=== PATIENT | female | born 1965 | race Caucasian/White ===

== ENCOUNTER 2016-08-04 20:57 | Emergency (ER) | payer MEDICARE, MEDICAID ==
[~2016-08-04] VITALS: Ht 167.6 cm; Wt 72.6 kg
[~2016-08-04 20:57] MED LIST: ACETAMINOPHEN-1 EAC1 ORAL; CYCLOBENZAPRINE10 MG ORAL; METFORMIN HCL500 M1 ORAL; PERCOCET 5-3251 EACH ORAL; RANITIDINE HCL150 MG ORAL
[2016-08-04 21:09] VITALS: BP 139/83
[2016-08-04] MEDS ORDERED: PERCOCET 10-321 EACH ORAL (21:13)
[2016-08-04] MEDS ORDERED: Norco 5mg/325mg tab ORAL ONE (21:45)
--- NOTE | 2016-08-04 21:46 | Emergency Room Report ---
History of Present Illness General Chief Complaint: Pain Source: Patient, EMS Present Illness HPI This is a 50-year-old female with history of chronic pain. She is on heavy doses of narcotic for it. She is fairly taking Percocet 10/325, #120, soma #90 , oxycodone 30 mg #90. Patient presents with chief complaint of back pain. No trauma. Onset today. Denies any fever chills denies any nausea vomiting. Nothing made it better nothing made it worse. No radiation. Pain is 10 out of 10. Patient said that she took her last pain medication today. No other complaint. Tell me that she has an appointment next week for refill. Allergies: Coded Allergies: No Known Allergies (Unverified , 12/07/13) Patient History Past Medical History: see triage record, old chart reviewed Past Surgical History: other Pertinent Family History: none Social History: Denies: smoking Now: No Immunizations: other Reviewed Nursing Documentation: PMH: Agreed, PSxH: Agreed Nursing Documentation-PMH Past Medical History: No Stated History Hx Cardiac Problems: No - CHRONIC BACK PAIN Hx Hypertension: Yes Hx Diabetes: Yes Hx Gastrointestinal Problems: Yes - ULCERS Review of Systems Eye: Denies: blurred vision, eye pain ENT: Denies: ear pain, nose congestion, throat swelling Respiratory: Denies: cough, shortness of breath Cardiovascular: Denies: chest pain, palpitations Gastrointestinal: Denies: abdominal pain, diarrhea, nausea, vomiting Musculoskeletal: Reports: back pain, Denies: joint pain Skin: Denies: rash Neurological: Denies: headache, numbness Endocrine: Denies: increased thirst, increased urine Hematologic/Lymphatic: Denies: easy bruising All Other Systems: negative except mentioned in HPI Physical Exam Vital Signs Date Time Temp Pulse Resp B/P Pulse Ox O2 Delivery O2 Flow Rate FiO2 08/04/16 20:55 97.9 85 18 135/105 98 Room Air vitals unremarkable Sp02 EP Interpretation: reviewed, normal General Appearance: well appearing, no apparent distress, alert Head: normocephalic, atraumatic Eyes: bilateral eye EOMI, bilateral eye PERRL ENT: hearing grossly normal, normal pharynx Neck: full range of motion, supple, no meningismus Respiratory: chest non-tender, lungs clear, normal breath sounds Cardiovascular #1: regular rate, rhythm, no murmur Gastrointestinal: normal bowel sounds, non tender, no mass, no organomegaly, no bruit, non-distended Musculoskeletal: back normal - No deformity. Diffuse tenderness with palpation. No anesthesia., gait/station normal, normal range of motion Neurologic: alert, oriented x3 Psychiatric: mood/affect normal Skin: warm/dry Medical Decision Making Diagnostic Impression: Primary Impression: Back pain Qualified Codes: M54.5 - Low back pain Additional Impression: Opioid dependence Qualified Codes: F11.20 - Opioid dependence, uncomplicated ER Course Patient presents with back pain. She is opioid dependent. She told me that she is out of her pain medication. When asked why she has no refills, she said she can get refill on these. She is to see her doctor. She has an appointment next week. On the [employer] system, she does receive her monthly narcotics on every second. She should have plenty. She then changed her story to that she is out of ibuprofen. She says she still has plenty of narcotics. This is different from what she told me before. She would not need to see her Dr. for refills on ibuprofen. I see no evidence of cauda equina syndrome, spinal or abscess or neoplastic process. There is no trauma. Last Vital Signs Date Time Temp Pulse Resp B/P Pulse Ox O2 Delivery O2 Flow Rate FiO2 08/04/16 21:09 98.0 77 14 139/83 100 Room Air Status: unchanged Disposition: HOME, SELF-CARE Condition: Stable Referrals: NON PHYSICIAN (PCP) Patient Instructions: Chronic Pain Additional Instructions: Followup with your Dr. in 2-3 days. Return if symptom worsen. JASON GRAMAJO M.D. Aug 04, 2016 21:46
[2016-08-04 22:05] LABS: APPEARANCE,URINE CLEAR; KETONES,URINE NEGATIVE (NEGATIVE); LEUKOCYTE ESTERASE ,URINE 1+ (NEGATIVE); NITRITE,URINE NEGATIVE (NEGATIVE); PH,URINE 6 (4.5-8.0); PROTEIN,URINE NEGATIVE (NEGATIVE); UROBILINOGEN,URINE NORMAL MG/DL (0.0-1.0)
[2016-08-04 22:21] LABS: BACTERIA,URINE FEW /HPF; RBC,URINE 0-2 /HPF (0 - 2); SQUAMOUS EPITHELIAL CELL,UR FEW /LPF (NONE/OCC)
[2016-08-04] MEDS ORDERED: NITROFURANTOIN100 M2 ORAL (22:29)
[2016-08-04 22:35] VITALS: BP 134/79
== END 2016-08-04 22:37 | disposition home or self-care (01) ==
LOC: EDBD 20:57 → EMR 21:29
DX: M54.5 Low back pain (principal); F11.20 Opioid dependence, uncomplicated; G89.29 Other chronic pain; I10 Essential (primary) hypertension; E11.9 Type 2 diabetes mellitus without complications; Z87.19 Personal history of other diseases of the digestive system
CPT/HCPCS: 80300; 81003; 99282

== ENCOUNTER 2016-08-06 13:45 | Emergency (ER) | payer MEDICARE, MEDICAID ==
[~2016-08-06] VITALS: Ht 175.3 cm; Wt 92.5 kg
[~2016-08-06 13:45] MED LIST changes: +NITROFURANTOIN100 M2 ORAL; +PERCOCET 10-321 EACH ORAL
[2016-08-06 13:52] VITALS: BP 140/90
[2016-08-06] MEDS ORDERED: Dicyclomine HCl 10mg/5ml oral soln ORAL ONE (14:15)
[2016-08-06] MEDS ORDERED: Lidocaine 2% Visc 15ml soln ORAL ONE (14:15)
[2016-08-06] MEDS ORDERED: Mylanta II UD 30ml ORAL ONE (14:15)
[2016-08-06 15:19] LABS: APPEARANCE,URINE SLIGHTLY CLOUDY; KETONES,URINE NEGATIVE (NEGATIVE); LEUKOCYTE ESTERASE ,URINE NEGATIVE (NEGATIVE); NITRITE,URINE NEGATIVE (NEGATIVE); PH,URINE 8 (4.5-8.0); PROTEIN,URINE NEGATIVE (NEGATIVE); UROBILINOGEN,URINE NORMAL MG/DL (0.0-1.0)
[2016-08-06 15:26] LABS: BASOPHILS % (AUTO) 0.7 % (0.0-2.0); LYMPHOCYTES % (AUTO) 19.7 % (20.0-45.0); MEAN CORPUSCULAR HEMOGLOBIN 32.6 PG (27.0-31.0); MEAN CORPUSCULAR HGB CONC 33.6 G/DL (32.0-36.0); MEAN CORPUSCULAR VOLUME 97 FL (80-99); MEAN PLATELET VOLUME 6.4 FL (6.5-10.1); MONOCYTES % (AUTO) 2.5 % (1.0-10.0); NEUTROPHILS % (AUTO) 77.1 % (45.0-75.0); PLATELET COUNT 253 K/UL (150-450); RED BLOOD COUNT 4.69 M/UL (4.20-5.40)
--- NOTE | 2016-08-06 15:26 | Emergency Room Report ---
History of Present Illness General Chief Complaint: Vomiting Source: Patient, EMS Present Illness HPI 50-year-old female brought in by ambulance complaining of nausea vomiting as last night. Associated symptoms include generalized abdominal pain without any provoking or relieving factors, body aches, low back pain, chills, and nausea with 6 episodes of non-bloody yellow vomiting. Patient was here a couple days ago and was diagnosed with UTI and given abx which patient has not taken. Patient takes Percocet for chronic hip pain with good compliance w/o AE and with good control and states the last time she took medication was at 11:30am w/ o improvement of sxs. Patient states she tried to take 1/2 an ativan for her nausea w/o relief. Patient states that her last by mouth intake was dinner yesterday which she had eaten white rice with chicken and beef from the [employer] food. Patient denies any diarrhea, shortness of breath, chest pain, rash, sore throat, nasal congestion, neck pain, headache, muscle weakness , back pain, flank pain or dysuria. Allergies: Coded Allergies: No Known Allergies (Unverified , 12/07/13) Patient History Past Medical History: see triage record, old chart reviewed Past Surgical History: unable to obtain Pertinent Family History: none Social History: Reports: drug use Now: No Reviewed Nursing Documentation: PMH: Agreed, PSxH: Agreed Nursing Documentation-PMH Hx Cardiac Problems: No - CHRONIC BACK PAIN Hx Hypertension: Yes Hx Diabetes: Yes Hx Gastrointestinal Problems: Yes - ULCERS Review of Systems All Other Systems: negative except mentioned in HPI Physical Exam Vital Signs Date Time Temp Pulse Resp B/P Pulse Ox O2 Delivery O2 Flow Rate FiO2 08/06/16 13:46 98.4 75 16 140/90 98 Room Air Sp02 EP Interpretation: reviewed, normal General Appearance: no apparent distress, alert, GCS 15, non-toxic Head: normocephalic, atraumatic Eyes: bilateral eye PERRL, bilateral eye normal inspection ENT: hearing grossly normal, normal pharynx, no angioedema, normal voice Neck: full range of motion, supple/symm/no masses Respiratory: chest non-tender, lungs clear, normal breath sounds, speaking full sentences Cardiovascular #1: regular rate, rhythm, no edema, no murmur, no rub Gastrointestinal: soft, no mass, no bruit, non-distended, no guarding, no hernia, no rebound, tenderness - generalized without rebound, Neg McBurney Rectal: deferred Genitourinary: no CVA tenderness Musculoskeletal: back normal, gait/station normal, normal range of motion, non- tender, calf tenderness Neurologic: alert, oriented x3, responsive, motor strength/tone normal, sensory intact, speech normal Psychiatric: judgement/insight normal, memory normal, mood/affect normal, no suicidal/homicidal ideation Skin: normal color, no rash, warm/dry, well hydrated Lymphatic: no adenopathy Medical Decision Making PA Attestation Dr. Stein is my supervising physician with whom patient management has been discussed with. Diagnostic Impression: Primary Impression: Abdominal pain Qualified Codes: R10.84 - Generalized abdominal pain Additional Impressions: Nausea & vomiting Qualified Codes: R11.2 - Nausea with vomiting, unspecified Chronic pain Qualified Codes: G89.4 - Chronic pain syndrome ER Course Pt. presents to the ED c/o nausea / vomiting x 1 day Ddx considered but are not limited to viral syndrome, appendicitis, diverticulitis, cholecystitis, pancreatitis, non-specific abd pain Vital signs: are WNL, pt. is afebrile H&PE are most consistent with non-specific abd pain ORDERS: CBC, CMP, Lipase, UA, Urine Tox, CT Abd Pelvis ED INTERVENTIONS: 1L Bolus NS, 4 Morphine, 4mg Zofran, 10mg Reglan, PO Challenge DISCHARGE: At this time pt. is stable for d/c to home. Patient is improved in condition and taking PO fluids. Labs and CT scan appeared to be non- contributory to patient's condition. Will provide printed patient care instructions, and any necessary prescriptions. Care plan and follow up instructions have been discussed with the patient prior to discharge. Laboratory Tests Test 08/06/16 14:51 White Blood Count 6.0 K/UL (4.8-10.8) Red Blood Count 4.69 M/UL (4.20-5.40) Hemoglobin 15.3 G/DL (12.0-16.0) Hematocrit 45.6 % (37.0-47.0) Mean Corpuscular Volume 97 FL (80-99) Mean Corpuscular Hemoglobin 32.6 PG (27.0-31.0) H Mean Corpuscular Hemoglobin Concent 33.6 G/DL (32.0-36.0) Red Cell Distribution Width 11.0 % (11.6-14.8) L Platelet Count 253 K/UL (150-450) Mean Platelet Volume 6.4 FL (6.5-10.1) L Neutrophils (%) (Auto) 77.1 % (45.0-75.0) H Lymphocytes (%) (Auto) 19.7 % (20.0-45.0) L Monocytes (%) (Auto) 2.5 % (1.0-10.0) Eosinophils (%) (Auto) 0.0 % (0.0-3.0) Basophils (%) (Auto) 0.7 % (0.0-2.0) Urine Color Yellow Urine Appearance Slightly cloudy Urine pH 8 (4.5-8.0) Urine Specific [place] 1.010 (1.005-1.035) Urine Protein Negative (NEGATIVE) Urine Glucose (UA) Negative (NEGATIVE) Urine Ketones Negative (NEGATIVE) Urine Occult Blood 1+ (NEGATIVE) H Urine Nitrite Negative (NEGATIVE) Urine Bilirubin Negative (NEGATIVE) Urine Urobilinogen Normal MG/DL (0.0-1.0) Urine Leukocyte Esterase Negative (NEGATIVE) Urine RBC 0-2 /HPF (0 - 2) Urine WBC 0-2 /HPF (0 - 2) Urine Squamous Epithelial Cells Few /LPF (NONE/OCC) Urine Amorphous Sediment Many /LPF (NONE) H Urine Bacteria Few /HPF (NONE) Urine HCG, Qualitative Negative Sodium Level 139 mEQ/L (135-145) Potassium Level 3.8 mEQ/L (3.4-4.9) Chloride Level 95 mEQ/L (98-107) L Carbon Dioxide Level 24 mEQ/L (20-30) Anion Gap 20 (5-15) H Blood Urea Nitrogen 7 mg/dL (7-23) Creatinine 0.7 mg/dL (0.5-0.9) Estimate Glomerular Filtration Rate > 60 mL/min (>60) Glucose Level 132 mg/dL (74-106) H Calcium Level 9.6 mg/dL (8.6-10.2) Total Bilirubin 0.6 mg/dL (0.0-1.2) Aspartate Amino Transferase (AST) 52 U/L (5-40) H Alanine Aminotransferase (ALT) 54 U/L (3-33) H Alkaline Phosphatase 77 U/L (35-104) Total Protein 8.7 g/dL (6.6-8.7) Albumin 4.6 g/dL (3.5-5.2) Globulin 4.1 g/dL Albumin/Globulin Ratio 1.1 (1.0-2.7) Lipase 65 U/L (< 60) H Urine Opiates Screen Negative (NEGATIVE) Urine Barbiturates Screen Negative (NEGATIVE) Phencyclidine (PCP) Screen Negative (NEGATIVE) Urine Amphetamines Screen Negative (NEGATIVE) Urine Benzodiazepines Screen Positive (NEGATIVE) H Urine Cocaine Screen Negative (NEGATIVE) Urine Marijuana (THC) Screen Negative (NEGATIVE) CT/MRI/US Diagnostic Results CT/MRI/US Diagnostic Results : Imaging Test Ordered: CT Scan abd / pelvis with contrast Impression Radiologist Review: Mild dilation vs underdistention of the transverse and descending colon. Last Vital Signs Date Time Temp Pulse Resp B/P Pulse Ox O2 Delivery O2 Flow Rate FiO2 08/06/16 13:52 98.4 16 140/90 98 Room Air 08/06/16 13:46 75 Status: improved Disposition: HOME, SELF-CARE Condition: Improved Scripts Metoclopramide Hcl* (REGLAN*) 10 Mg Tablet 10 MG ORAL THREE TIMES A DAY for 5 Days, #15 TAB Prov: CHA PAULA 08/06/16 Referrals: NOT CHOSEN IPA/MD,REFERRING (PCP) Patient Instructions: Abdominal Pain, Adult, Nausea and Vomiting, Adult Additional Instructions: Take medication as directed. Patient instructed to stay well hydrated and to use a liquid diet and then progress to soft bland diet as tolerated before reverting back to a regular diet. Patient Education was given to the patient. Patient advised if irreretractible pain, rectal bleeding, or no BM to go to ER immediately. CHA PAULA Aug 06, 2016 15:26
[2016-08-06 15:30] LABS: ALANINE AMINOTRANSFERASE 54 U/L (3-33); ALBUMIN/GLOBULIN RATIO 1.1 (1.0-2.7); ANION GAP 20 (5-15); ASPARTATE AMINO TRANSFERASE 52 U/L (5-40); CALCIUM 9.6 mg/dL (8.6-10.2); CARBON DIOXIDE 24 mEQ/L (20-30); CHLORIDE 95 mEQ/L (98-107); CREATININE 0.7 mg/dL (0.5-0.9); GLOMERULAR FILTRATION RATE > 60 mL/min (>60); HEMOLYSIS 4; LIPASE 65 U/L (< 60); POTASSIUM 3.8 mEQ/L (3.4-4.9); SODIUM 139 mEQ/L (135-145); TOTAL PROTEIN 8.7 g/dL (6.6-8.7)
[2016-08-06 15:31] LABS: RBC,URINE 0-2 /HPF (0 - 2); SQUAMOUS EPITHELIAL CELL,UR FEW /LPF (NONE/OCC); WBC,URINE 0-2 /HPF (0 - 2)
[2016-08-06 15:32] LABS: AMORPHOUS SEDIMENT,UR MANY /LPF; BACTERIA,URINE FEW /HPF
[2016-08-06] MEDS ORDERED: Metoclopramide 10mg/2ml Inj IVP ONE (15:45)
[2016-08-06] MEDS ORDERED: Morphine Sulfate 4mg/ml Inj IVP ONE (17:00)
[2016-08-06 18:01] VITALS: BP 153/65
[2016-08-06 18:16] VITALS: BP 153/65
[2016-08-06] MEDS ORDERED: REGLAN10 M1 ORAL (18:19)
--- NOTE | 2016-08-07 08:40 | Diagnostic Imaging Report ---
\H\CT Abdomen/Pelvis with Intravenous Contrast Date of service: 08/06/16. Indication: Acute generalized abdominal pain. Comparison: None available. Technique: Utilizing a multislice CT scanner, a CT of the abdomen and pelvis was performed after administration of intravenous contrast. All CT scans at this facility use dose modulation, iterative reconstruction, and/or weight based dosing when appropriate to reduce radiation dose to as low as reasonably achievable. CTDIvol (mGy): 18 DLP (mGy-cm): 992 Findings: The visualized lung bases are clear. The liver is unremarkable. The gallbladder is surgically absent. The pancreas, spleen and adrenal glands are unremarkable. No calculus is identified within either kidney, along the expected course of the ureters or within the urinary bladder. There is no evidence of hydronephrosis or asymmetric perirenal inflammatory change. The urinary bladder is grossly unremarkable. The pelvic organs are grossly unremarkable. The colon is decompressed and not optimally evaluated. Apparent thickening of distal transverse and descending colonic wall could reflect under distention or colitis. There is no evidence of obstruction. There is no extraluminal gas or fluid. There are no enlarged lymph nodes. There is no significant calcified atherosclerotic disease of the the abdominal aorta. Two right pelvic orthopedic screws traversing the right SI joint are noted. \N\\H\Impression: 1. Suboptimal evaluation of the decompressed colon. Apparent thickening of distal transverse and descending colonic wall could reflect under distention or colitis. 2. Status post cholecystectomy.\N\
== END 2016-08-06 18:43 | disposition home or self-care (01) ==
LOC: EDBD 13:45 → EDUNIT# 13:45 → EMR 14:10
DX: R10.84 Generalized abdominal pain (principal); R11.2 Nausea with vomiting, unspecified; G89.4 Chronic pain syndrome; F19.90 Other psychoactive substance use, unspecified, uncomplicated; I10 Essential (primary) hypertension; E11.9 Type 2 diabetes mellitus without complications; Z87.19 Personal history of other diseases of the digestive system
CPT/HCPCS: 36415; 74177; 80053; 80300; 81003; 81025; 83690; 85025; 96360; 96361; 96374; 96375; 99284; J2270; J2405; J2765; Q9967